=== PATIENT | female | born 1980 | race African-American/Black ===

== ENCOUNTER 2018-01-07 10:19 | Inpatient (IN) | payer OTHER ==
[2018-01-07] MEDS ORDERED: SODIUM CHLORIDE 0.9% 1,000 ML IV STA ×3 (10:52→12:39)
[2018-01-07] MEDS ORDERED: ONDANSETRON 4 MG/2 ML VIAL IVP STA (10:52)
--- NOTE | 2018-01-07 11:09 | ED ---
General Adult HPI - General Chief complaint: Syncope Stated complaint: Syncope Time Seen by Provider: 01/07/18 10:37 Source: patient, family, RN notes reviewed Mode of arrival: wheelchair Limitations: no limitations - History of Present Illness Initial comments: Patient 38-year-old female who presents emergency room today with chief complaint of near syncopal episodes. Patient does admit that she is had symptoms of nausea vomiting over the past week. She states she did see the family doctor and was results are on a blood pressure medication that she's been taking for the past 4 days. She does not that she's been on lisinopril. She does admit that she's had a difficult time with her appetite keeping anything down due to symptoms of nausea vomiting. Denies any signs of blood in the emesis. Denies any diarrhea. Denies any abdominal pain. Patient doesn't that she had an ear infection over a week ago that she did antibiotics for and pain has subsided. She denies any headaches or visual changes. She does admit that she's been feeling dizzy lightheaded at times. She denies any chest pain, back pain. Patient's son and daughter at bedside stating that they've noticed that she has been more lethargic and sleepy lately. Patient denies any fever or chills. - Related Data Home Medications Medication Instructions Recorded Confirmed Lisinopril [Zestril] 10 mg PO DAILY 01/07/18 01/07/18 Allergies Allergy/AdvReac Type Severity Reaction Status Date / Time hydromorphone [From Dilaudid] Allergy Swelling Verified 01/07/18 11:08 morphine Allergy Swelling Verified 01/07/18 11:08 Review of Systems ROS Statement: Those systems with pertinent positive or pertinent negative responses have been documented in the HPI. ROS Other: All systems not noted in ROS Statement are negative. Past Medical History Past Medical History: Hypertension History of Any Multi-Drug Resistant Organisms: None Reported Past Surgical History: Cholecystectomy, Tubal Ligation Past Psychological History: No Psychological Hx Reported Smoking Status: Former smoker Past Alcohol Use History: None Reported Past Drug Use History: None Reported General Exam - General Exam Comments Initial Comments: General: The patient is awake and alert, in no distress. Eye: Pupils are equal, round and reactive to light. Extra-ocular movements are intact. No nystagmus. There is normal conjunctiva bilaterally. No signs of icterus. Ears, nose, mouth and throat: There are moist mucous membranes and no oral lesions. TMs clear bilaterally. No tenderness over the mastoids. Neck: The neck is supple, there is no tenderness or JVD. Cardiovascular: There is a regular rate and rhythm. No murmur, rub or gallop is appreciated. Respiratory: Lungs are clear to auscultation, respirations are non-labored, breath sounds are equal. No wheezes, stridor, rales, or rhonchi. Gastrointestinal: Soft, non-distended, non-tender abdomen without masses or organomegaly noted. There is no rebound or guarding present. No CVA tenderness. Bowel sounds are unremarkable. Musculoskeletal: Normal ROM, no tenderness. Sensation intact. Strength 5/5. Pulses equal bilaterally 2+. Neurological: A&O x 3. CN II-XII intact, There are no obvious motor or sensory deficits. Coordination appears grossly intact. Speech is normal. Skin: Skin is warm and dry and no rashes or lesions are noted. Psychiatric: Cooperative, appropriate mood & affect, normal judgment. Limitations: no limitations Course Vital Signs 01/07/18 01/07/18 10:22 11:04 Temperature 97.7 F Pulse Rate 92 Pulse Rate [ 94 Sitting] Pulse Rate [ 140 H Standing] Pulse Rate [ 93 Supine] Respiratory 16 Rate Blood Pressure 119/82 Blood Pressure 118/68 [Sitting] Blood Pressure 129/76 [Supine] O2 Sat by Pulse 100 Oximetry EKG Findings - EKG Comments: EKG Findings:: EKG performed at 1040: Shows normal sinus rhythm at 87 bpm OH interval 148. QRS 88. QT/QTC 354/425. No acute ST changes. Medical Decision Making - Medical Decision Making Patient reexamined at this time states feeling some improvement here in the emergency room. Patient given total of 2 L IV fluids. Patient started on DKA protocol with blood glucose regular rhythm 500 and acetone positive. Patient orthostatic positive. Will be admitted to hospital and case discussed with admitting physician Dr. Marie. - Lab Data Result diagrams: 01/07/18 11:08 01/07/18 11:08 Lab Results 01/07/18 01/07/18 01/07/18 Range/Units 11:08 11:08 11:08 WBC 6.8 (3.8-10.6) k/uL RBC 5.97 H (3.80-5.40) m/uL Hgb 13.2 (11.4-16.0) gm/dL Hct 46.6 H (34.0-46.0) % MCV 78.1 L (80.0-100.0) fL MCH 22.2 L (25.0-35.0) pg MCHC 28.4 L (31.0-37.0) g/dL RDW 17.5 H (11.5-15.5) % Plt Count 294 (150-450) k/uL Neutrophils % 74 % Lymphocytes % 19 % Monocytes % 3 % Eosinophils % 2 % Basophils % 1 % Neutrophils # 5.1 (1.3-7.7) k/uL Lymphocytes # 1.3 (1.0-4.8) k/uL Monocytes # 0.2 (0-1.0) k/uL Eosinophils # 0.1 (0-0.7) k/uL Basophils # 0.0 (0-0.2) k/uL Hypochromasia Marked Anisocytosis Slight Microcytosis Slight Sodium 135 L (137-145) mmol/L Potassium 5.5 H (3.5-5.1) mmol/L Chloride 97 L (98-107) mmol/L Carbon Dioxide 12 L (22-30) mmol/L Anion Gap 26 mmol/L BUN 17 (7-17) mg/dL Creatinine 1.08 H (0.52-1.04) mg/dL Est GFR (CKD-EPI)AfAm 76 (>60 ml/min/1.73 sqM) Est GFR (CKD-EPI)NonAf 66 (>60 ml/min/1.73 sqM) Glucose 555 H* (74-99) mg/dL POC Glucose (mg/dL) (75-99) mg/dL POC Glu Acls Nurse ID Calcium 10.6 H (8.4-10.2) mg/dL Total Bilirubin 0.8 (0.2-1.3) mg/dL AST 16 (14-36) U/L ALT 17 (9-52) U/L Alkaline Phosphatase 134 H (38-126) U/L Total Creatine Kinase 46 (30-135) U/L CK-MB (CK-2) <0.2 (0.0-2.4) ng/mL CK-MB (CK-2) Rel Index Troponin I <0.012 (0.000-0.034) ng/mL Total Protein 8.3 H (6.3-8.2) g/dL Albumin 5.0 (3.5-5.0) g/dL Urine Color Urine Appearance (Clear) Urine pH (5.0-8.0) Ur Specific [place] (1.001-1.035) Urine Protein (Negative) Urine Glucose (UA) (Negative) Urine Ketones (Negative) Urine Blood (Negative) Urine Nitrite (Negative) Urine Bilirubin (Negative) Urine Urobilinogen (<2.0) mg/dL Ur Leukocyte Esterase (Negative) Urine RBC (0-5) /hpf Urine WBC (0-5) /hpf Ur Squamous Epith Cells (0-4) /hpf Urine Bacteria (None) /hpf Hyaline Casts (0-2) /lpf Urine Mucus (None) /hpf Urine Yeast (Budding) (None) /hpf Urine HCG, Qual (Not Detectd) Acetone, Qual (Negative) 01/07/18 01/07/18 01/07/18 Range/Units 11:08 11:25 11:25 WBC (3.8-10.6) k/uL RBC (3.80-5.40) m/uL Hgb (11.4-16.0) gm/dL Hct (34.0-46.0) % MCV (80.0-100.0) fL MCH (25.0-35.0) pg MCHC (31.0-37.0) g/dL RDW (11.5-15.5) % Plt Count (150-450) k/uL Neutrophils % % Lymphocytes % % Monocytes % % Eosinophils % % Basophils % % Neutrophils # (1.3-7.7) k/uL Lymphocytes # (1.0-4.8) k/uL Monocytes # (0-1.0) k/uL Eosinophils # (0-0.7) k/uL Basophils # (0-0.2) k/uL Hypochromasia Anisocytosis Microcytosis Sodium (137-145) mmol/L Potassium (3.5-5.1) mmol/L Chloride (98-107) mmol/L Carbon Dioxide (22-30) mmol/L Anion Gap mmol/L BUN (7-17) mg/dL Creatinine (0.52-1.04) mg/dL Est GFR (CKD-EPI)AfAm (>60 ml/min/1.73 sqM) Est GFR (CKD-EPI)NonAf (>60 ml/min/1.73 sqM) Glucose (74-99) mg/dL POC Glucose (mg/dL) (75-99) mg/dL POC Glu Acls Nurse ID Calcium (8.4-10.2) mg/dL Total Bilirubin (0.2-1.3) mg/dL AST (14-36) U/L ALT (9-52) U/L Alkaline Phosphatase (38-126) U/L Total Creatine Kinase (30-135) U/L CK-MB (CK-2) (0.0-2.4) ng/mL CK-MB (CK-2) Rel Index Troponin I (0.000-0.034) ng/mL Total Protein (6.3-8.2) g/dL Albumin (3.5-5.0) g/dL Urine Color Light Yellow Urine Appearance Clear (Clear) Urine pH 5.0 (5.0-8.0) Ur Specific [place] 1.028 (1.001-1.035) Urine Protein Trace H (Negative) Urine Glucose (UA) 4+ H (Negative) Urine Ketones 4+ H (Negative) Urine Blood Negative (Negative) Urine Nitrite Negative (Negative) Urine Bilirubin Negative (Negative) Urine Urobilinogen <2.0 (<2.0) mg/dL Ur Leukocyte Esterase Small H (Negative) Urine RBC 7 H (0-5) /hpf Urine WBC 3 (0-5) /hpf Ur Squamous Epith Cells 2 (0-4) /hpf Urine Bacteria Rare H (None) /hpf Hyaline Casts 1 (0-2) /lpf Urine Mucus Rare H (None) /hpf Urine Yeast (Budding) Rare H (None) /hpf Urine HCG, Qual Not Detected (Not Detectd) Acetone, Qual Positive (Negative) 01/07/18 Range/Units 11:46 WBC (3.8-10.6) k/uL RBC (3.80-5.40) m/uL Hgb (11.4-16.0) gm/dL Hct (34.0-46.0) % MCV (80.0-100.0) fL MCH (25.0-35.0) pg MCHC (31.0-37.0) g/dL RDW (11.5-15.5) % Plt Count (150-450) k/uL Neutrophils % % Lymphocytes % % Monocytes % % Eosinophils % % Basophils % % Neutrophils # (1.3-7.7) k/uL Lymphocytes # (1.0-4.8) k/uL Monocytes # (0-1.0) k/uL Eosinophils # (0-0.7) k/uL Basophils # (0-0.2) k/uL Hypochromasia Anisocytosis Microcytosis Sodium (137-145) mmol/L Potassium (3.5-5.1) mmol/L Chloride (98-107) mmol/L Carbon Dioxide (22-30) mmol/L Anion Gap mmol/L BUN (7-17) mg/dL Creatinine (0.52-1.04) mg/dL Est GFR (CKD-EPI)AfAm (>60 ml/min/1.73 sqM) Est GFR (CKD-EPI)NonAf (>60 ml/min/1.73 sqM) Glucose (74-99) mg/dL POC Glucose (mg/dL) 477 H (75-99) mg/dL POC Glu Acls Nurse ID Dylon Schaeffer Calcium (8.4-10.2) mg/dL Total Bilirubin (0.2-1.3) mg/dL AST (14-36) U/L ALT (9-52) U/L Alkaline Phosphatase (38-126) U/L Total Creatine Kinase (30-135) U/L CK-MB (CK-2) (0.0-2.4) ng/mL CK-MB (CK-2) Rel Index Troponin I (0.000-0.034) ng/mL Total Protein (6.3-8.2) g/dL Albumin (3.5-5.0) g/dL Urine Color Urine Appearance (Clear) Urine pH (5.0-8.0) Ur Specific [place] (1.001-1.035) Urine Protein (Negative) Urine Glucose (UA) (Negative) Urine Ketones (Negative) Urine Blood (Negative) Urine Nitrite (Negative) Urine Bilirubin (Negative) Urine Urobilinogen (<2.0) mg/dL Ur Leukocyte Esterase (Negative) Urine RBC (0-5) /hpf Urine WBC (0-5) /hpf Ur Squamous Epith Cells (0-4) /hpf Urine Bacteria (None) /hpf Hyaline Casts (0-2) /lpf Urine Mucus (None) /hpf Urine Yeast (Budding) (None) /hpf Urine HCG, Qual (Not Detectd) Acetone, Qual (Negative) Disposition Clinical Impression: DKA (diabetic ketoacidoses), Orthostatic hypotension, Nausea & vomiting, Near syncope Disposition: ADMITTED IP TO THIS HOSP Condition: Stable Is patient prescribed a controlled substance at d/c from ED?: No Referrals: Carmen Warner MD [Primary Care Provider] - 1-2 days Time of Disposition: 12:33
[2018-01-07 11:22] LABS: Anisocytosis Slight; Basophils % (A) 1 %; Eosinophils # (A) 0.1 k/uL (0-0.7); Eosinophils % (A) 2 %; HCT 46.6 % (34.0-46.0); HGB 13.2 gm/dL (11.4-16.0); Hypochromasia Marked; Lymphocytes # (A) 1.3 k/uL (1.0-4.8); Lymphocytes % (A) 19 %; MCH 22.2 pg (25.0-35.0); MCHC 28.4 g/dL (31.0-37.0); MCV 78.1 fL (80.0-100.0); Microcytosis Slight; Monocytes # (A) 0.2 k/uL (0-1.0); Monocytes % (A) 3 %; Neutrophils # (A) 5.1 k/uL (1.3-7.7); Neutrophils % (A) 74 %; Platelet Count 294 k/uL (150-450); RBC 5.97 m/uL (3.80-5.40); RDW 17.5 % (11.5-15.5); WBC 6.8 k/uL (3.8-10.6)
[2018-01-07 11:33] LABS: Calcium 10.6 mg/dL (8.4-10.2); Potassium 5.5 mmol/L (3.5-5.1); Total Bilirubin 0.8 mg/dL (0.2-1.3); Total Protein 8.3 g/dL (6.3-8.2)
[2018-01-07 11:35] LABS: Appearance,Urine Clear (Clear); Bacteria,Urine Rare /hpf; Bilirubin,Urine Negative (Negative); Blood,Urine Negative (Negative); Budding Yeast,Urine Rare /hpf; Color,Urine Light Yellow; Glucose,Urine (UA) 4+ (Negative); Hyaline Casts,Urine 1 /lpf (0-2); Leukocyte Esterase,Urine Small (Negative); Mucus,Urine Rare /hpf; Nitrite,Urine Negative (Negative); Protein,Urine Trace (Negative); RBC,Urine 7 /hpf (0-5); Specific Gravity,Urine 1.028 (1.001-1.035); Squamous Epithelial Cell,Urine 2 /hpf (0-4); Urobilinogen,Urine <2.0 mg/dL (<2.0)
[2018-01-07 11:40] LABS: Ketones,Urine 4+ (Negative)
[2018-01-07 11:41] LABS: Creatine Kinase 46 U/L (30-135)
[2018-01-07] MEDS ORDERED: INSULIN ASPART 100 UNIT/ML 1 ML 10 ML VIAL SQ ONE (11:48)
[2018-01-07 11:51] LABS: Glucose,Whole Blood 477 mg/dL (75-99)
[2018-01-07 11:55] LABS: Creatine Kinase MB <0.2 ng/mL (0.0-2.4); Troponin I <0.012 ng/mL (0.000-0.034)
[2018-01-07] MEDS ORDERED: Magnesium Replacement Protocol 1 EACH MISC MISCELLANE PRN (12:29)
[2018-01-07] MEDS ORDERED: Potassium Replacement Protocol 1 EACH MISC MISCELLANE PRN (12:29)
[2018-01-07] MEDS ORDERED: SODIUM CHLORIDE 0.9% 1,000 ML IV SCH (12:30)
[2018-01-07] MEDS ORDERED: INSULIN REGULAR 100 UNIT in SODIUM CHLORIDE 0.9% 100 ML IV SCH (12:30)
[2018-01-07] MEDS ORDERED: ONDANSETRON 4 MG/2 ML VIAL IVP PRN (13:01)
[2018-01-07] MEDS: SODIUM CHLORIDE 0.9% 1,000 ML IV SCH ×2 (13:04→18:16)
[2018-01-07] MEDS: INSULIN REGULAR 100 UNIT in SODIUM CHLORIDE 0.9% 100 ML IV SCH (13:04)
--- NOTE | 2018-01-07 13:09 | P.HPIM ---
History of Present Illness H&P Date: 01/07/18 Chief Complaint: Nausea and vomiting, fatigue and weakness The Patient is 38-year-old -[place] female who presents emergency room today with chief complaint of episodes of lightheadedness, generalized weakness and fatigue over the last week. Patient does admit that she is had symptoms of nausea vomiting over the past week, but denies any abdominal pain, diarrhea or constipation. She states she did see the family doctor Dr. Warner and was started on a blood pressure medication that she's been taking for the past 4 days. She does admit that she's had a difficult time with her appetite keeping anything down due to symptoms of nausea vomiting. Denies any signs of blood in the emesis. Patient doesn't that she had an ear infection over a week ago that she did antibiotics for and pain has subsided. She denies any headaches or visual changes. She does admit that she's been feeling dizzy lightheaded at times. She denies any chest pain, back pain. Patient's son and daughter at bedside stating that they've noticed that she has been more lethargic and sleepy lately. Patient denies any fever or chills. She denies any dysuria, flank pain or frequency. She does report nocturia In the ER circumference a workup, with pretty remarkable labs serum bicarb 12, serum sodium 135 , serum potassium 5.5 blood sugar 555, creatinine 1.08, urinalysis with +4ketones and glucose. Patient was initially noted to be tachycardic. She was given a bolus of IV fluids, regular insulin and started on DKA protocol and recommended for admission for DKA Review of Systems Pertinent positives per HPI, all other review of systems are otherwise negative Past Medical History Past Medical History: Hypertension History of Any Multi-Drug Resistant Organisms: None Reported Past Surgical History: Cholecystectomy, Tubal Ligation Past Psychological History: No Psychological Hx Reported Smoking Status: Former smoker Past Alcohol Use History: None Reported Past Drug Use History: None Reported Medications and Allergies Home Medications Medication Instructions Recorded Confirmed Type Lisinopril [Zestril] 10 mg PO DAILY 01/07/18 01/07/18 History Allergies Allergy/AdvReac Type Severity Reaction Status Date / Time hydromorphone [From Dilaudid] Allergy Swelling Verified 01/07/18 11:08 morphine Allergy Swelling Verified 01/07/18 11:08 Physical Exam Vitals: Vital Signs Temp Pulse Pulse Pulse Pulse Resp BP 01/07/18 11:04 94 140 H 93 01/07/18 10:22 97.7 F 92 16 119/82 BP BP Pulse Ox 01/07/18 11:04 118/68 129/76 01/07/18 10:22 100 Intake and Output 01/06/18 01/07/18 01/07/18 22:59 06:59 14:59 Other: Weight 108.862 kg Constitutional: No acute distress, conversant, pleasant Eyes: Anicteric sclerae, moist conjunctiva, no lid-lag, PERRLA ENMT: NC/AT,Oropharynx clear, no erythema, exudates Neck:Supple, FROM, no masses, or JVD, No carotid bruits; No thyromegaly Lungs: Clear to auscultation, Clear to percussion, Normal respiratory effort, no accessory muscle use Cardiovascular: Heart regular in rate and rhythm, No murmurs, gallops, or rubs no peripheral edema Abdominal: Soft Nontender, nom distended, no guarding, no rebound or rigidity, Normoactive bowel sounds No hepatomegaly, No splenomegaly, No palpable mass No abdominal wall hernia noted Skin: Normal temperature, tone, texture, turgor, No induration No subcutaneous nodules, No rash, lesions, No ulcers Extremities:No digital cyanosis No clubbing, Pedal pulses intact and symmetrical Radial pulses intact and symmetrical Normal gait and station, No calf tenderness Psychiatric: Alert and oriented to person, place and time, Appropriate affect Intact judgement Neuro: Muscles Strength 5/5 in all 4 extremities, Sensation to light touch grossly present throughout, Cranial nerves II-XII grossly intact. No focal sensory deficits Results CBC & Chem 7: 01/07/18 11:08 01/07/18 11:08 Labs: Abnormal Lab Results - Last 24 Hours (Table) 01/07/18 01/07/18 01/07/18 Range/Units 11:08 11:08 11:25 RBC 5.97 H (3.80-5.40) m/uL Hct 46.6 H (34.0-46.0) % MCV 78.1 L (80.0-100.0) fL MCH 22.2 L (25.0-35.0) pg MCHC 28.4 L (31.0-37.0) g/dL RDW 17.5 H (11.5-15.5) % Sodium 135 L (137-145) mmol/L Potassium 5.5 H (3.5-5.1) mmol/L Chloride 97 L (98-107) mmol/L Carbon Dioxide 12 L (22-30) mmol/L Creatinine 1.08 H (0.52-1.04) mg/dL Glucose 555 H* (74-99) mg/dL POC Glucose (mg/dL) (75-99) mg/dL Calcium 10.6 H (8.4-10.2) mg/dL Alkaline Phosphatase 134 H (38-126) U/L Total Protein 8.3 H (6.3-8.2) g/dL Urine Protein Trace H (Negative) Urine Glucose (UA) 4+ H (Negative) Urine Ketones 4+ H (Negative) Ur Leukocyte Esterase Small H (Negative) Urine RBC 7 H (0-5) /hpf Urine Bacteria Rare H (None) /hpf Urine Mucus Rare H (None) /hpf Urine Yeast (Budding) Rare H (None) /hpf 01/07/18 Range/Units 11:46 RBC (3.80-5.40) m/uL Hct (34.0-46.0) % MCV (80.0-100.0) fL MCH (25.0-35.0) pg MCHC (31.0-37.0) g/dL RDW (11.5-15.5) % Sodium (137-145) mmol/L Potassium (3.5-5.1) mmol/L Chloride (98-107) mmol/L Carbon Dioxide (22-30) mmol/L Creatinine (0.52-1.04) mg/dL Glucose (74-99) mg/dL POC Glucose (mg/dL) 477 H (75-99) mg/dL Calcium (8.4-10.2) mg/dL Alkaline Phosphatase (38-126) U/L Total Protein (6.3-8.2) g/dL Urine Protein (Negative) Urine Glucose (UA) (Negative) Urine Ketones (Negative) Ur Leukocyte Esterase (Negative) Urine RBC (0-5) /hpf Urine Bacteria (None) /hpf Urine Mucus (None) /hpf Urine Yeast (Budding) (None) /hpf Assessment and Plan (1) DKA (diabetic ketoacidoses) Current Visit: Yes Status: Acute Code(s): E13.10 - OTH DIABETES MELLITUS WITH KETOACIDOSIS WITHOUT COMA SNOMED Code(s): 259583867 (2) ESE (acute kidney injury) Current Visit: Yes Status: Acute Code(s): N17.9 - ACUTE KIDNEY FAILURE, UNSPECIFIED SNOMED Code(s): 51264989 (3) Metabolic acidosis Current Visit: Yes Status: Acute Code(s): E87.2 - ACIDOSIS SNOMED Code(s) : 10972599 (4) Nausea & vomiting Current Visit: Yes Status: Acute Code(s): R11.2 - NAUSEA WITH VOMITING, UNSPECIFIED SNOMED Code(s): 32483019 (5) Near syncope Current Visit: Yes Status: Acute Code(s): R55 - SYNCOPE AND COLLAPSE SNOMED Code(s): 244201540 (6) Hyperkalemia Current Visit: Yes Status: Acute Code(s): E87.5 - HYPERKALEMIA SNOMED Code (s): 81430799 Plan: The patient is admitted anticipated greater than 2 midnight stay with DKA, patient likely has type 2 diabetes of new onset. She started on in house DKA protocol placed on insulin drip and IV fluids. We'll check A1c, ABG, sequential electrolytes to monitor anion gap so that we can transition her to subcutaneous insulin. We'll order a ems educator dietitian consult. The patient has mild acute kidney injury with hyperkalemia likely prerenal due to DKA and dehydration. Continue to treat supportively with IV antiemetics. Patient will likely need to be started on metformin and continued on lisinopril , at this time will Continue to monitor clinical course
[2018-01-07] MEDS ORDERED: ENOXAPARIN 40 MG/0.4 ML SYRINGE SQ STA (13:16)
[2018-01-07 13:35] LABS: Glucose,Whole Blood 404 mg/dL (75-99)
[2018-01-07 13:48] LABS: Glucose,Whole Blood 354 mg/dL (75-99)
[2018-01-07 14:53] LABS: Glucose,Whole Blood 229 mg/dL (75-99)
[2018-01-07 15:14] LABS: Amorphous Sediment,Urine Rare /hpf; Appearance,Urine Cloudy (Clear); Bilirubin,Urine Negative (Negative); Blood,Urine Large (Negative); Color,Urine Light Yellow; Glucose,Urine (UA) 4+ (Negative); Leukocyte Esterase,Urine Large (Negative); Mucus,Urine Rare /hpf; Nitrite,Urine Negative (Negative); Protein,Urine Trace (Negative); RBC,Urine >182 /hpf (0-5); Specific Gravity,Urine 1.023 (1.001-1.035); Squamous Epithelial Cell,Urine 29 /hpf (0-4); Urobilinogen,Urine <2.0 mg/dL (<2.0); WBC,Urine 84 /hpf (0-5)
[2018-01-07 15:16] LABS: Ketones,Urine 4+ (Negative)
[2018-01-07] MEDS: D5-0.45% NACL WITH KCL 20MEQ/L 1,000 ML IV SCH (15:56)
[2018-01-07 16:23] LABS: Glucose,Whole Blood 147 mg/dL (75-99)
[2018-01-07 17:06] LABS: Anion Gap 16 mmol/L; Blood Urea Nitrogen 13 mg/dL (7-17); Carbon Dioxide 16 mmol/L (22-30); Chloride 108 mmol/L (98-107); Glucose 151 mg/dL (74-99); Potassium 4.5 mmol/L (3.5-5.1); Sodium 140 mmol/L (137-145)
[2018-01-07 17:24] LABS: Glucose,Whole Blood 150 mg/dL (75-99)
[2018-01-07 18:43] LABS: Glucose,Whole Blood 149 mg/dL (75-99)
[2018-01-07 19:31] LABS: Glucose,Whole Blood 175 mg/dL (75-99)
[2018-01-07 20:12] LABS: Glucose,Whole Blood 152 mg/dL (75-99)
[2018-01-07 21:04] LABS: Anion Gap 14 mmol/L; Blood Urea Nitrogen 11 mg/dL (7-17); Carbon Dioxide 15 mmol/L (22-30); Chloride 107 mmol/L (98-107); Glucose 152 mg/dL (74-99); Phosphorus 2.8 mg/dL (2.5-4.5); Potassium 4.3 mmol/L (3.5-5.1); Sodium 136 mmol/L (137-145)
[2018-01-07 21:20] LABS: Glucose,Whole Blood 141 mg/dL (75-99)
[2018-01-07 22:20] LABS: Glucose,Whole Blood 147 mg/dL (75-99)
[2018-01-07 23:27] LABS: Glucose,Whole Blood 239 mg/dL (75-99)
[2018-01-08 00:51] LABS: Glucose,Whole Blood 208 mg/dL (75-99)
[2018-01-08 01:36] LABS: Glucose,Whole Blood 221 mg/dL (75-99)
[2018-01-08 01:58] LABS: Anion Gap 12 mmol/L; Blood Urea Nitrogen 9 mg/dL (7-17); Calcium 8.6 mg/dL (8.4-10.2); Carbon Dioxide 16 mmol/L (22-30); Chloride 106 mmol/L (98-107); Glucose 233 mg/dL (74-99); Sodium 134 mmol/L (137-145)
[2018-01-08 02:49] LABS: Glucose,Whole Blood 259 mg/dL (75-99)
[2018-01-08 03:50] LABS: Glucose,Whole Blood 285 mg/dL (75-99)
[2018-01-08 05:12] LABS: Glucose,Whole Blood 271 mg/dL (75-99)
[2018-01-08] MEDS: D5-0.45% NACL WITH KCL 20MEQ/L 1,000 ML IV SCH ×3 (05:35→11:54)
[2018-01-08] MEDS: INSULIN REGULAR 100 UNIT in SODIUM CHLORIDE 0.9% 100 ML IV SCH ×2 (05:38→14:41)
[2018-01-08 05:50] LABS: Glucose,Whole Blood 275 mg/dL (75-99)
[2018-01-08 07:47] LABS: Glucose,Whole Blood 257 mg/dL (75-99)
[2018-01-08 10:03] LABS: Anion Gap 10 mmol/L; Blood Urea Nitrogen 7 mg/dL (7-17); Calcium 8.4 mg/dL (8.4-10.2); Carbon Dioxide 20 mmol/L (22-30); Chloride 105 mmol/L (98-107); Glucose 274 mg/dL (74-99); Potassium 4.1 mmol/L (3.5-5.1); Sodium 135 mmol/L (137-145)
[2018-01-08 11:33] VITALS: BMI 39.4
[2018-01-08 11:56] LABS: Glucose,Whole Blood 211 mg/dL (75-99)
--- NOTE | 2018-01-08 12:46 | P.PN ---
Subjective Progress Note Date: 01/08/18 Patient has been noncompliant since early this morning with blood sugar draws and labs, demanding to be fed. Discussed with the patient the ongoing plan of care for her DKA and type 2 diabetes. Discussed that this is typical to keep patient's nothing by mouth while they are in DKA, explained that is imperative to continue to allow us to do blood sugar draws and labs so that we can transition her to subcu insulin and feed her. Patient voiced understanding. No acute events overnight Objective - Vital Signs Vital signs: Vital Signs Temp 97.5 F L 01/08/18 04:00 Pulse 76 01/08/18 11:56 Resp 16 01/08/18 12:00 BP 113/56 01/08/18 11:56 Pulse Ox 97 01/08/18 11:56 Intake & Output 01/07/18 01/08/18 01/08/18 18:59 06:59 18:59 Intake Total 36.668 46.439 17.893 Output Total 600 Balance -563.332 46.439 17.893 Weight 108.862 kg 110.8 kg 110.8 kg Intake: Intake, IV Titration 36.668 46.439 17.893 Amount Insulin Regular 100 unit 36.668 46.439 17.893 In Sodium Chloride 0.9% 100 ml @ 0.1 UNITS/KG/HR 10.99 mls/hr IV .[id number] [facility] Rx#:[id number] Output: Urine 600 Other: Voiding Method Toilet Toilet # Voids 1 1 - Exam Constitutional: No acute distress, conversant, pleasant Eyes: Anicteric sclerae, moist conjunctiva, no lid-lag, PERRLA ENMT: NC/AT,Oropharynx clear, no erythema, exudates Neck:Supple, FROM, no masses, or JVD, No carotid bruits; No thyromegaly Lungs: Clear to auscultation, Clear to percussion, Normal respiratory effort, no accessory muscle use Cardiovascular: Heart regular in rate and rhythm, No murmurs, gallops, or rubs no peripheral edema Abdominal: Soft Nontender, nom distended, no guarding, no rebound or rigidity, Normoactive bowel sounds No hepatomegaly, No splenomegaly, No palpable mass No abdominal wall hernia noted Skin: Normal temperature, tone, texture, turgor, No induration No subcutaneous nodules, No rash, lesions, No ulcers Extremities:No digital cyanosis No clubbing, Pedal pulses intact and symmetrical Radial pulses intact and symmetrical Normal gait and station, No calf tenderness Psychiatric: Alert and oriented to person, place and time, Appropriate affect Intact judgement Neuro: Muscles Strength 5/5 in all 4 extremities, Sensation to light touch grossly present throughout, Cranial nerves II-XII grossly intact. No focal sensory deficits - Labs CBC & Chem 7: 01/07/18 11:08 01/08/18 06:29 Labs: Abnormal Lab Results - Last 24 Hours (Table) 01/07/18 01/07/18 01/07/18 Range/Units 11:08 12:58 13:39 Sodium (137-145) mmol/L Chloride (98-107) mmol/L Carbon Dioxide (22-30) mmol/L Glucose (74-99) mg/dL POC Glucose (mg/dL) 404 H 354 H (75-99) mg/dL Hemoglobin A1c 14.0 H (4.0-6.0) % Urine Appearance (Clear) Urine Protein (Negative) Urine Glucose (UA) (Negative) Urine Ketones (Negative) Urine Blood (Negative) Ur Leukocyte Esterase (Negative) Urine RBC (0-5) /hpf Urine WBC (0-5) /hpf Ur Squamous Epith Cells (0-4) /hpf Amorphous Sediment (None) /hpf Urine Mucus (None) /hpf 01/07/18 01/07/18 01/07/18 Range/Units 14:46 14:55 16:09 Sodium (137-145) mmol/L Chloride (98-107) mmol/L Carbon Dioxide (22-30) mmol/L Glucose (74-99) mg/dL POC Glucose (mg/dL) 229 H 147 H (75-99) mg/dL Hemoglobin A1c (4.0-6.0) % Urine Appearance Cloudy H (Clear) Urine Protein Trace H (Negative) Urine Glucose (UA) 4+ H (Negative) Urine Ketones 4+ H (Negative) Urine Blood Large H (Negative) Ur Leukocyte Esterase Large H (Negative) Urine RBC >182 H (0-5) /hpf Urine WBC 84 H (0-5) /hpf Ur Squamous Epith Cells 29 H (0-4) /hpf Amorphous Sediment Rare H (None) /hpf Urine Mucus Rare H (None) /hpf 01/07/18 01/07/18 01/07/18 Range/Units 16:23 17:20 18:31 Sodium (137-145) mmol/L Chloride 108 H (98-107) mmol/L Carbon Dioxide 16 L (22-30) mmol/L Glucose 151 H (74-99) mg/dL POC Glucose (mg/dL) 150 H 149 H (75-99) mg/dL Hemoglobin A1c (4.0-6.0) % Urine Appearance (Clear) Urine Protein (Negative) Urine Glucose (UA) (Negative) Urine Ketones (Negative) Urine Blood (Negative) Ur Leukocyte Esterase (Negative) Urine RBC (0-5) /hpf Urine WBC (0-5) /hpf Ur Squamous Epith Cells (0-4) /hpf Amorphous Sediment (None) /hpf Urine Mucus (None) /hpf 01/07/18 01/07/18 01/07/18 Range/Units 19:26 20:07 20:10 Sodium 136 L (137-145) mmol/L Chloride (98-107) mmol/L Carbon Dioxide 15 L (22-30) mmol/L Glucose 152 H (74-99) mg/dL POC Glucose (mg/dL) 175 H 152 H (75-99) mg/dL Hemoglobin A1c (4.0-6.0) % Urine Appearance (Clear) Urine Protein (Negative) Urine Glucose (UA) (Negative) Urine Ketones (Negative) Urine Blood (Negative) Ur Leukocyte Esterase (Negative) Urine RBC (0-5) /hpf Urine WBC (0-5) /hpf Ur Squamous Epith Cells (0-4) /hpf Amorphous Sediment (None) /hpf Urine Mucus (None) /hpf 01/07/18 01/07/18 01/07/18 Range/Units 21:16 22:18 23:25 Sodium (137-145) mmol/L Chloride (98-107) mmol/L Carbon Dioxide (22-30) mmol/L Glucose (74-99) mg/dL POC Glucose (mg/dL) 141 H 147 H 239 H (75-99) mg/dL Hemoglobin A1c (4.0-6.0) % Urine Appearance (Clear) Urine Protein (Negative) Urine Glucose (UA) (Negative) Urine Ketones (Negative) Urine Blood (Negative) Ur Leukocyte Esterase (Negative) Urine RBC (0-5) /hpf Urine WBC (0-5) /hpf Ur Squamous Epith Cells (0-4) /hpf Amorphous Sediment (None) /hpf Urine Mucus (None) /hpf 01/08/18 01/08/18 01/08/18 Range/Units 00:50 01:34 01:34 Sodium 134 L (137-145) mmol/L Chloride (98-107) mmol/L Carbon Dioxide 16 L (22-30) mmol/L Glucose 233 H (74-99) mg/dL POC Glucose (mg/dL) 208 H 221 H (75-99) mg/dL Hemoglobin A1c (4.0-6.0) % Urine Appearance (Clear) Urine Protein (Negative) Urine Glucose (UA) (Negative) Urine Ketones (Negative) Urine Blood (Negative) Ur Leukocyte Esterase (Negative) Urine RBC (0-5) /hpf Urine WBC (0-5) /hpf Ur Squamous Epith Cells (0-4) /hpf Amorphous Sediment (None) /hpf Urine Mucus (None) /hpf 01/08/18 01/08/18 01/08/18 Range/Units 02:46 03:48 04:47 Sodium (137-145) mmol/L Chloride (98-107) mmol/L Carbon Dioxide (22-30) mmol/L Glucose (74-99) mg/dL POC Glucose (mg/dL) 259 H 285 H 271 H (75-99) mg/dL Hemoglobin A1c (4.0-6.0) % Urine Appearance (Clear) Urine Protein (Negative) Urine Glucose (UA) (Negative) Urine Ketones (Negative) Urine Blood (Negative) Ur Leukocyte Esterase (Negative) Urine RBC (0-5) /hpf Urine WBC (0-5) /hpf Ur Squamous Epith Cells (0-4) /hpf Amorphous Sediment (None) /hpf Urine Mucus (None) /hpf 01/08/18 01/08/18 01/08/18 Range/Units 05:47 06:29 07:26 Sodium 135 L (137-145) mmol/L Chloride (98-107) mmol/L Carbon Dioxide 20 L (22-30) mmol/L Glucose 274 H (74-99) mg/dL POC Glucose (mg/dL) 275 H 257 H (75-99) mg/dL Hemoglobin A1c (4.0-6.0) % Urine Appearance (Clear) Urine Protein (Negative) Urine Glucose (UA) (Negative) Urine Ketones (Negative) Urine Blood (Negative) Ur Leukocyte Esterase (Negative) Urine RBC (0-5) /hpf Urine WBC (0-5) /hpf Ur Squamous Epith Cells (0-4) /hpf Amorphous Sediment (None) /hpf Urine Mucus (None) /hpf 01/08/18 Range/Units 11:36 Sodium (137-145) mmol/L Chloride (98-107) mmol/L Carbon Dioxide (22-30) mmol/L Glucose (74-99) mg/dL POC Glucose (mg/dL) 211 H (75-99) mg/dL Hemoglobin A1c (4.0-6.0) % Urine Appearance (Clear) Urine Protein (Negative) Urine Glucose (UA) (Negative) Urine Ketones (Negative) Urine Blood (Negative) Ur Leukocyte Esterase (Negative) Urine RBC (0-5) /hpf Urine WBC (0-5) /hpf Ur Squamous Epith Cells (0-4) /hpf Amorphous Sediment (None) /hpf Urine Mucus (None) /hpf Assessment and Plan (1) DKA (diabetic ketoacidoses) Narrative/Plan: * Patient initially refusing lab draws 4 hourly blood sugars and a.m. labs, discussed plan of care, patient agreeable * Continue to keep the patient nothing by mouth, this a.m. acetone is still positive, with anion gap closing * Continue with insulin drip, will recheck labs later today, we'll likely transition her to subcu insulin by dinnertime * A1c is 14, patient seen by manager credit and dietitian. Discussed with the patient that she will be sent home on insulin and perhaps metformin * Continue to monitor status Current Visit: Yes Status: Acute Code(s): E13.10 - OTH DIABETES MELLITUS WITH KETOACIDOSIS WITHOUT COMA SNOMED Code(s): 696842847 (2) ESE (acute kidney injury) Narrative/Plan: Resolved with IV fluids Current Visit: Yes Status: Resolved Code(s): N17.9 - ACUTE KIDNEY FAILURE, UNSPECIFIED SNOMED Code(s): 60293050 (3) Metabolic acidosis Current Visit: Yes Status: Acute Code(s): E87.2 - ACIDOSIS SNOMED Code(s) : 56617073 (4) Nausea & vomiting Narrative/Plan: * Secondary to DKA continue supportive therapy with Zofran Current Visit: Yes Status: Acute Code(s): R11.2 - NAUSEA WITH VOMITING, UNSPECIFIED SNOMED Code(s): 11364038 (5) Near syncope Narrative/Plan: * Secondary to dehydration due to DKA * Resolved with IV fluids Current Visit: Yes Status: Resolved Code(s): R55 - SYNCOPE AND COLLAPSE SNOMED Code(s): 748625241 (6) Hyperkalemia Narrative/Plan: * Secondary to DKA Current Visit: Yes Status: Resolved Code(s): E87.5 - HYPERKALEMIA SNOMED Code(s): 41064402 Plan: Anticipated discharge 1 day Continue with insulin drip plan to transition to subcu insulin when her DKA is resolved
[2018-01-08 13:03] LABS: Glucose,Whole Blood 194 mg/dL (75-99)
[2018-01-08 14:28] LABS: Glucose,Whole Blood 206 mg/dL (75-99)
[2018-01-08 14:55] LABS: Glucose,Whole Blood 225 mg/dL (75-99)
[2018-01-08 15:40] LABS: Anion Gap 9 mmol/L; Blood Urea Nitrogen 5 mg/dL (7-17); Calcium 8.7 mg/dL (8.4-10.2); Carbon Dioxide 21 mmol/L (22-30); Chloride 107 mmol/L (98-107); Glucose 223 mg/dL (74-99); Potassium 4.3 mmol/L (3.5-5.1); Sodium 137 mmol/L (137-145)
[2018-01-08 15:43] LABS: Glucose,Whole Blood 207 mg/dL (75-99)
[2018-01-08 16:41] LABS: Glucose,Whole Blood 199 mg/dL (75-99)
[2018-01-08 17:56] LABS: Glucose,Whole Blood 213 mg/dL (75-99)
[2018-01-08 19:23] LABS: Glucose,Whole Blood 184 mg/dL (75-99)
[2018-01-08] MEDS: INSULIN ASPART 100 UNIT/ML 1 ML 10 ML VIAL SQ SCH ×3 (20:56→22:00)
[2018-01-08 21:00] LABS: Glucose,Whole Blood 146 mg/dL (75-99)
[2018-01-08] MEDS ORDERED: INSULIN DETEMIR 100 UNIT/ML 10 ML VIAL SQ SCH (21:00)
[2018-01-09 06:16] LABS: Glucose,Whole Blood 213 mg/dL (75-99)
[2018-01-09] MEDS: INSULIN ASPART 100 UNIT/ML 1 ML 10 ML VIAL SQ SCH ×4 (06:59→11:34)
[2018-01-09 08:02] VITALS: RESP 16; TEMP 98
[2018-01-09] MEDS ORDERED: metFORMIN 500 MG TAB PO SCH (08:30)
[2018-01-09] MEDS ORDERED: LISINOPRIL 10 MG TAB PO SCH (09:00)
[2018-01-09 11:39] LABS: Glucose,Whole Blood 294 mg/dL (75-99)
--- NOTE | 2018-01-09 12:19 | P.DS ---
Providers Date of admission: 01/07/18 12:30 Expected date of discharge: 01/09/18 Attending physician: Ken Marie MD Primary care physician: Carmen Warner MD - Discharge Diagnosis(es) (1) DKA (diabetic ketoacidoses) Current Visit: Yes Status: Acute (2) ESE (acute kidney injury) Current Visit: Yes Status: Resolved (3) Metabolic acidosis Current Visit: Yes Status: Acute (4) Nausea & vomiting Current Visit: Yes Status: Acute (5) Near syncope Current Visit: Yes Status: Resolved (6) Hyperkalemia Current Visit: Yes Status: Resolved (7) Type 2 diabetes mellitus with hyperglycemia Current Visit: Yes Status: Acute Hospital Course: The patient is a morbidly obese 38-year-old -[place] female that was admitted with DKA and new onset type 2 diabetes after presenting with chief complaint of intractable nausea vomiting with significantly elevated blood sugars 555, metabolic acidosis and ketonuria. She is given aggressive IV fluid replacement and started on insulin drip per in-house protocol. She was also noted to be severely dehydrated with a mild acute kidney injury which resolved with IV fluids. Her type 2 diabetes with severely uncontrolled A1c was 14. She was gradually transitioned to subcu insulin after resolution of her anion gap and her DKA. She was transitioned to Levemir 44 units daily at bedtime and NovoLog 14 units subcu every before meals. She was seen by the certified lactation educator and dietitian and was taught how to administer her own insulin. She was subsequently discharged home in stable condition with new prescriptions for insulin regimen and metformin. manager bench was able to set up a glucometer and home diabetic supplies testing for 4 times a day testing. This discharge process took approximately 35 minutes Discharge prescriptions Metformin 1000 mg by mouth twice a day Reglan 5 mg PO qachs Basal Glar kwikpen 44 U sq qhs Humalog Kwikpen 14 U sq qac Discharge physical Constitutional: No acute distress, conversant, pleasant Eyes: Anicteric sclerae, moist conjunctiva, no lid-lag, PERRLA ENMT: NC/AT,Oropharynx clear, no erythema, exudates Neck:Supple, FROM, no masses, or JVD, No carotid bruits; No thyromegaly Lungs: Clear to auscultation, Clear to percussion, Normal respiratory effort, no accessory muscle use Cardiovascular: Heart regular in rate and rhythm, No murmurs, gallops, or rubs no peripheral edema Abdominal: Soft Nontender, nom distended, no guarding, no rebound or rigidity, Normoactive bowel sounds No hepatomegaly, No splenomegaly, No palpable mass No abdominal wall hernia noted Skin: Normal temperature, tone, texture, turgor, No induration No subcutaneous nodules, No rash, lesions, No ulcers Extremities:No digital cyanosis No clubbing, Pedal pulses intact and symmetrical Radial pulses intact and symmetrical Normal gait and station, No calf tenderness Psychiatric: Alert and oriented to person, place and time, Appropriate affect Intact judgement Neuro: Muscles Strength 5/5 in all 4 extremities, Sensation to light touch grossly present throughout, Cranial nerves II-XII grossly intact. No focal sensory deficits Patient Condition at Discharge: Stable Plan - Discharge Summary Discharge Rx Participant: Yes New Discharge Prescriptions: New Insulin Aspart [NovoLOG (formulary)] 14 unit SQ AC-TID vial Insulin Aspart [NovoLOG (formulary)] 0 unit SQ ACHS vial Insulin Detemir [Levemir] 44 unit SQ HS syr metFORMIN HCL [Glucophage] 1,000 mg PO BID-W/MEALS #60 tab Metoclopramide [Reglan] 5 mg PO ACHS #120 tab No Action Lisinopril [Zestril] 10 mg PO DAILY Discharge Medication List Lisinopril [Zestril] 10 mg PO DAILY 01/07/18 [History] Insulin Aspart [NovoLOG (formulary)] 0 unit SQ ACHS vial 01/09/18 [Rx] Insulin Aspart [NovoLOG (formulary)] 14 unit SQ AC-TID vial 01/09/18 [Rx] Insulin Detemir [Levemir] 44 unit SQ HS syr 01/09/18 [Rx] Metoclopramide [Reglan] 5 mg PO ACHS #120 tab 01/09/18 [Rx] metFORMIN HCL [Glucophage] 1,000 mg PO BID-W/MEALS #60 tab 01/09/18 [Rx] Follow up Appointment(s)/Referral(s): Carmen Warner MD [Primary Care Provider] - 01/10/18 3:00 pm () [facility], [NON-STAFF] - Patient Instructions/Handouts: Diabetic Ketoacidosis (DC), Type 2 Diabetes in Adults: New Diagnosis (DC), Meal Planning with Diabetes Exchanges (DC) Activity/Diet/Wound Care/Special Instructions: Glucometer and testing supplies - being mailed to you by [facility] - Discharge Disposition: HOME SELF-CARE
[2018-01-09] MEDS ORDERED: INSULIN ASPART 100 UNIT/ML 1 ML 10 ML VIAL SQ SCH (12:30)
[2018-01-09] MEDS ORDERED: METOCLOPRAMIDE 5 MG TAB PO SCH (12:30)
[2018-01-09 13:37] LABS: Glucose,Whole Blood 309 mg/dL (75-99)
[2018-01-09 14:15] VITALS: BP 119/57; PULSE 86
[2018-01-09] MEDS ORDERED: INSULIN DETEMIR 100 UNIT/ML 10 ML VIAL SQ SCH (21:00)
== END 2018-01-09 16:05 | disposition home health service (06) | DRG 638 ==
LOC: EC 10:19 → 6SEL 12:30
PROVIDERS: ADMIT Family Medicine; ATTEND Family Medicine
DX: E11.10 Type 2 diabetes mellitus with ketoacidosis without coma (principal); N17.9 Acute kidney failure, unspecified; E87.5 Hyperkalemia; E66.01 Morbid (severe) obesity due to excess calories; I95.1 Orthostatic hypotension; I10 Essential (primary) hypertension; E86.0 Dehydration; Z68.39 Body mass index [BMI] 39.0-39.9, adult; Z91.19 Patient's noncompliance with other medical treatment and regimen; Z71.3 Dietary counseling and surveillance; Z79.899 Other long term (current) drug therapy; Z90.49 Acquired absence of other specified parts of digestive tract; Z98.51 Tubal ligation status; Z87.891 Personal history of nicotine dependence; Z88.5 Allergy status to narcotic agent
CPT/HCPCS: 36415; 80048; 80051; 80053; 81001; 81025; 82009; 82550; 82553; 82565; 82947; 83036; 84100; 84484; 84520; 85025; 93005; 96361; 96374; 99285

== ENCOUNTER → 2018-04-12 | Outpatient (CLI) | payer OTHER ==
[2018-04-12 12:36] LABS: Anisocytosis Slight; HCT 32.5 % (34.0-46.0); HGB 9.4 gm/dL (11.4-16.0); Hypochromasia Marked; MCHC 28.8 g/dL (31.0-37.0); MCV 76.2 fL (80.0-100.0); Mean Platelet Volume 7.4; Microcytosis Slight; Platelet Count 318 k/uL (150-450); RBC 4.27 m/uL (3.80-5.40); RDW 16.7 % (11.5-15.5)
[2018-04-12 18:59] LABS: Albumin 4.4 g/dL (3.80-4.90); Albumin/Globulin Ratio 1.91 (1.20-2.10); Calcium 9.5 mg/dL (8.7-10.3); Globulin 2.3 g/dL (2.1-3.7); Total Bilirubin 0.4 mg/dL (0.3-1.2); Total Protein 6.7 g/dL (6.2-8.2)
[2018-04-12 21:31] LABS: Hemoglobin A1C 6.6 % (4.0-6.0)
== END | disposition home or self-care (01) ==
LOC: LABWHC1 11:46
PROVIDERS: ATTEND Family Medicine
DX: E11.65 Type 2 diabetes mellitus with hyperglycemia (principal); D64.9 Anemia, unspecified
CPT/HCPCS: 36415; 80053; 83036; 85027

== ENCOUNTER → 2018-08-07 | Outpatient (CLI) | payer OTHER ==
[2018-08-07 13:11] LABS: Anisocytosis Slight; Basophils % (A) 0 %; Eosinophils # (A) 0.3 k/uL (0-0.7); Eosinophils % (A) 4 %; HGB 9.7 gm/dL (11.4-16.0); Hypochromasia Marked; Lymphocytes # (A) 1.4 k/uL (1.0-4.8); Lymphocytes % (A) 22 %; MCH 20.9 pg (25.0-35.0); MCHC 28.5 g/dL (31.0-37.0); MCV 73.3 fL (80.0-100.0); Mean Platelet Volume 6.2; Microcytosis Moderate; Monocytes # (A) 0.2 k/uL (0-1.0); Monocytes % (A) 4 %; Neutrophils # (A) 4.3 k/uL (1.3-7.7); Neutrophils % (A) 68 %; Platelet Count 342 k/uL (150-450); RBC 4.64 m/uL (3.80-5.40); RDW 16.7 % (11.5-15.5); WBC 6.3 k/uL (3.8-10.6)
[2018-08-07 19:35] LABS: Albumin 4.5 g/dL (3.80-4.90); Albumin/Globulin Ratio 1.88 (1.60-3.17); Anion Gap 8.5 mmol/L (4.00-12.00); Calcium 9.5 mg/dL (8.7-10.3); Carbon Dioxide 26.5 mmol/L (21.6-31.8); Globulin 2.4 g/dL (1.6-3.3); LDL Cholesterol,Calculated 114.6 mg/dL (0.0-131.0); Potassium 4.2 mmol/L (3.5-5.5); Total Bilirubin 0.4 mg/dL (0.3-1.2); Total Protein 6.9 g/dL (6.2-8.2); VLDL Calculation 20.4 mg/dL (5.00-40.00)
[2018-08-07 19:42] LABS: Hemoglobin A1C 6.4 % (4.0-6.0)
== END | disposition home or self-care (01) ==
LOC: LABWHC1 11:26
PROVIDERS: ATTEND Family Medicine
DX: J45.909 Unspecified asthma, uncomplicated (principal); E11.9 Type 2 diabetes mellitus without complications; E78.5 Hyperlipidemia, unspecified
CPT/HCPCS: 36415; 80053; 80061; 82043; 82570; 83036; 85025

== ENCOUNTER → 2019-12-12 | Outpatient (CLI) | payer OTHER ==
[2019-12-12 20:07] LABS: Hepatitis B Surface Antigen Non-Reactive (Non-Reactive); Hepatitis C IgG Antibody Non-Reactive (Non-Reactive)
[2019-12-12 20:27] LABS: HIV 2 AB Non-Reactive (Non-Reactive); HIV AB P24 Non-Reactive (Non-Reactive); HIV P24 AG Non-Reactive (Non-Reactive)
[2019-12-12 21:06] LABS: Hemoglobin A1C 6.9 % (4.0-6.0)
== END | disposition home or self-care (01) ==
LOC: LABWHC1 09:34
PROVIDERS: ATTEND Family Medicine
DX: Z11.3 Encounter for screening for infections with a predominantly sexual mode of transmission (principal); E11.9 Type 2 diabetes mellitus without complications
CPT/HCPCS: 36415; 83036; 86780; 86803; 87340; 87390; 87521

== ENCOUNTER → 2020-06-01 | Outpatient (CLI) | payer OTHER ==
[2020-06-01 19:49] LABS: HCT 30.2 % (37.2-46.3); HGB 8.2 g/dL (12.0-15.0); MCH 19.2 pg (27.0-32.0); MCHC 27.2 g/dL (32.0-37.0); MCV 70.7 fL (80.0-97.0); Mean Platelet Volume 10.2 fL (9.5-12.2); Platelet Count 349 X 10*3/uL (140-440); RBC 4.27 X 10*6/uL (4.10-5.20); RDW 19.1 % (11.5-14.5)
[2020-06-01 20:42] LABS: Basophils # (A) 0.03 X 10*3/uL (0.00-0.10); Basophils % (A) 0.5 %; Eosinophils # (A) 0.33 X 10*3/uL (0.04-0.35); Eosinophils % (A) 5.7 %; Lymphocytes # (A) 1.39 X 10*3/uL (0.90-5.00); Monocytes # (A) 0.35 X 10*3/uL (0.20-1.00); Neutrophils # (A) 3.69 X 10*3/uL (1.80-7.70); Neutrophils % (A) 63.6 %
[2020-06-01 21:45] LABS: African American GFR (CKD) 82.8 (60.0-200.0); Albumin 4.8 g/dL (3.80-4.90); Albumin/Globulin Ratio 2.4 (1.60-3.17); Anion Gap 8.9 mmol/L (4.00-12.00); Calcium 9.5 mg/dL (8.7-10.3); Carbon Dioxide 24.1 mmol/L (21.6-31.8); Non-African American GFR(CKD) 71.4 (60.0-200.0); Potassium 4.1 mmol/L (3.5-5.5); Total Bilirubin 0.4 mg/dL (0.2-1.2); Total Protein 6.8 g/dL (6.2-8.2)
[2020-06-03 01:49] LABS: % Iron Saturation 2.55 (12.00-45.00); Ferritin 3.2 ng/mL (10.0-291.0)
== END | disposition home or self-care (01) ==
LOC: LABWHC1 11:19
PROVIDERS: ATTEND Family Medicine
DX: R10.9 Unspecified abdominal pain (principal)
CPT/HCPCS: 36415; 80053; 82728; 83540; 83550; 85025

== ENCOUNTER 2020-06-29 11:46 | Emergency (ER) | payer OTHER ==
[2020-06-29 11:53] VITALS: TEMP 98.1
[2020-06-29 13:00] LABS: Anisocytosis Slight; Basophils % (A) 0 %; Eosinophils % (A) 0 %; HCT 30.9 % (34.0-46.0); HGB 8.9 gm/dL (11.4-16.0); Hypochromasia Marked; Lymphocytes # (A) 0.5 k/uL (1.0-4.8); Lymphocytes % (A) 22 %; MCH 19.6 pg (25.0-35.0); MCHC 28.9 g/dL (31.0-37.0); MCV 67.6 fL (80.0-100.0); Mean Platelet Volume 8.5; Microcytosis Marked; Monocytes # (A) 0.1 k/uL (0-1.0); Monocytes % (A) 5 %; Neutrophils # (A) 1.7 k/uL (1.3-7.7); Neutrophils % (A) 70 %; Platelet Count 185 k/uL (150-450); RBC 4.57 m/uL (3.80-5.40); RDW 17.5 % (11.5-15.5); WBC 2.4 k/uL (3.8-10.6)
[2020-06-29 13:14] LABS: ALT 25 U/L (4-34); AST 30 U/L (14-36); African American GFR (CKD) >90 (>60 ml/min/1.73 sqM); Albumin 4.4 g/dL (3.5-5.0); Alkaline Phosphatase 112 U/L (38-126); Anion Gap 8 mmol/L; Blood Urea Nitrogen 11 mg/dL (7-17); C Reactive Protein 24.1 mg/L (<10.0); Calcium 9.6 mg/dL (8.4-10.2); Carbon Dioxide 28 mmol/L (22-30); Chloride 102 mmol/L (98-107); Glucose 134 mg/dL (74-99); LDH 658 U/L (313-618); Magnesium 2.1 mg/dL (1.6-2.3); Non-African American GFR(CKD) >90 (>60 ml/min/1.73 sqM); Potassium 4.8 mmol/L (3.5-5.1); Sodium 138 mmol/L (137-145); Total Bilirubin 0.5 mg/dL (0.2-1.3); Total Protein 7.5 g/dL (6.3-8.2)
[2020-06-29 13:26] LABS: INR 0.9 (<1.2); Prothrombin Time 9.9 sec (9.0-12.0)
--- NOTE | 2020-06-29 13:35 | XR ---
EXAMINATION TYPE: XR chest 1V portable DATE OF EXAM: 06/29/2020 COMPARISON: NONE HISTORY: Shortness of breath TECHNIQUE: Single frontal view of the chest is obtained. FINDINGS: There is no focal air space opacity, pleural effusion, or pneumothorax seen. The cardiac silhouette size is within normal limits. The osseous structures are intact. Mildly prominent inters titium. Limited inspiration. IMPRESSION: Correlate for interstitial pneumonitis or bronchitis.
[2020-06-29 13:40] LABS: Partial Thromboplastin Time 21.2 sec (22.0-30.0)
[2020-06-29] MEDS ORDERED: SODIUM CHLORIDE 0.9% 500 ML 500 ML IV STA (13:47)
[2020-06-29] MEDS ORDERED: DEXAMETHASONE SOD PHOSPHATE 10 MG/ML 1 ML VIAL IV STA (13:47)
--- NOTE | 2020-06-29 14:11 | ED ---
SOB HPI - General Chief Complaint: Shortness of Breath Stated Complaint: sob/covid+ Time Seen by Provider: 06/29/20 12:11 Source: patient Mode of arrival: wheelchair Limitations: no limitations - History of Present Illness Initial Comments: Patient is a 40-year-old female, with history of hypertension, diabetes, presenting to the emergency Department with complaints of shortness of breath increasing over the past few days. Patient was diagnosed with covid 6 days ago. She states her symptoms started just the day before that. She has been battling fevers over the past week, rangin from 99 to 101. Patient states the shortness breath became severe today so she came in for evaluation. She denies any abdominal pain, no nausea or vomiting. She does admit to a dry cough, with small amount production. Admits to history of mild asthma, no COPD. She admits to being a former smoker. She denies any chest pains but occasional burning when she coughs. She denies being this time. She has no further complaints. Upon arrival to the ER, she is afebrile, 99% on room air. - Related Data Home Medications Medication Instructions Recorded Confirmed Benzonatate [Tessalon Perles] 100 mg PO TID PRN 06/29/20 06/29/20 INSULIN LISPRO (HumaLOG) [HumaLOG] See Protocol SQ AC-TID 06/29/20 06/29/20 Ibuprofen [Motrin Ib] 800 mg PO Q8H PRN 06/29/20 06/29/20 Insulin Glargine [Lantus] 42 unit SQ HS 06/29/20 06/29/20 Prednisone (Unknown Strength) 1 dose PO DIRECTED 06/29/20 06/29/20 metFORMIN HCL [Glucophage] 1,000 mg PO DAILY 06/29/20 06/29/20 Previous Rx's Medication Instructions Recorded Albuterol Inhaler [Ventolin Hfa 2 puff INHALATION RT-QID PRN #1 06/29/20 Inhaler] puff Albuterol Nebulized [Ventolin 2.5 mg INHALATION RT-Q4H PRN #20 06/29/20 Nebulized] neb Dexamethasone [Decadron] 6 mg PO DAILY 5 Days #5 tablet 06/29/20 Allergies Allergy/AdvReac Type Severity Reaction Status Date / Time hydromorphone [From Dilaudid] Allergy Swelling Verified 06/29/20 14:34 morphine Allergy Swelling Verified 06/29/20 14:34 Review of Systems ROS Statement: Those systems with pertinent positive or pertinent negative responses have been documented in the HPI. ROS Other: All systems not noted in ROS Statement are negative. Past Medical History Past Medical History: Hypertension History of Any Multi-Drug Resistant Organisms: None Reported Past Surgical History: Cholecystectomy, Tubal Ligation Past Anesthesia/Blood Transfusion Reactions: No Reported Reaction Past Psychological History: No Psychological Hx Reported Smoking Status: Never smoker Past Alcohol Use History: None Reported Past Drug Use History: None Reported - Past Family History Father Family Medical History: COPD, Diabetes Mellitus, Hypertension Mother Family Medical History: Cancer, Diabetes Mellitus, Hypertension Sister(s) Family Medical History: Cancer General Exam - General Exam Comments Initial Comments: GENERAL: Patient is well-developed and well-nourished. Patient is nontoxic and in mild distress. HEAD: Atraumatic, normocephalic. EYES: Pupils equal round and reactive to light, extraocular movements intact, sclera anicteric, conjunctiva are normal. Eyelids were unremarkable. ENT: TMs normal, nares patent, oropharynx clear without exudates. Moist mucous membranes. NECK: Normal range of motion, supple without lymphadenopathy or JVD. LUNGS: Mildly labored respirations. Breath sounds clear to auscultation bilaterally and equal. No wheezes rales or rhonchi. HEART: Regular rate and rhythm without murmurs, rubs or gallops. ABDOMEN: Soft, nontender, normoactive bowel sounds. No guarding, no rebound. No masses appreciated. : Deferred MUSCULOSKELETAL: Normal extremities with adequate strength and normal range of motion, no pitting or edema. No clubbing or cyanosis. NEUROLOGICAL: Patient is alert and oriented x 3. Motor and sensory are also intact. Cranial nerves II through XII grossly intact. Symmetrical smile. Normal speech, normal gait. PSYCH: Normal mood, normal affect. SKIN: Warm, Dry, normal turgor, no rashes or lesions noted. Limitations: no limitations Course Vital Signs 06/29/20 06/29/20 11:51 13:49 Temperature 98.1 F Pulse Rate 64 Respiratory 18 20 Rate Blood Pressure 115/70 O2 Sat by Pulse 99 Oximetry Medical Decision Making - Medical Decision Making Patient is a 40-year-old female with history of hypertension, diabetes, presenting with shortness of breath increasing over the past week. She was diagnosed with covid 6 days ago, symptoms began one day before that. Her vital signs are stable upon arrival, 99% on room air, afebrile. She has some mild distress during her exam. EKG showed no acute process. Chest x-ray correlate for interstitial pneumonitis or bronchitis. Labs showed white count 2.4, hemoglobin is low at 8.9 which has been her baseline. D-dimer slightly elevated at 0.70. LDH and CRP is slightly elevated. Lactic acid is normal at 1.1. CT of the chest reveals no evidence for acute PE, multifocal areas of groundglass opacity. Patient received IV steroids, albuterol inhaler as well as some fluids. Her vital signs remained stable, 97-100% on room air during her stay. Patient was eligible for monoclonal antibody treatment, she did receive this. She was monitored for about an hour after her treatment, no adverse symptoms. P atient will be continued on steroids at home starting tomorrow, as well as albuterol inhaler. She does have updraft machine at home that she will use as well. She will follow up with her regular doctor. Patient is stable for discharge. Patient is in agreement with this plan of care. Return parameters were discussed with the patient and they verbalized understanding. Case di scussed with Dr. Hawley. - Lab Data Result diagrams: 06/29/20 12:46 06/29/20 12:46 Lab Results 06/29/20 06/29/20 06/29/20 Range/Units 12:46 12:46 12:46 WBC 2.4 L (3.8-10.6) k/uL RBC 4.57 (3.80-5.40) m/uL Hgb 8.9 L (11.4-16.0) gm/dL Hct 30.9 L (34.0-46.0) % MCV 67.6 L (80.0-100.0) fL MCH 19.6 L (25.0-35.0) pg MCHC 28.9 L (31.0-37.0) g/dL RDW 17.5 H (11.5-15.5) % Plt Count 185 (150-450) k/uL MPV 8.5 Neutrophils % 70 % Lymphocytes % 22 % Monocytes % 5 % Eosinophils % 0 % Basophils % 0 % Neutrophils # 1.7 (1.3-7.7) k/uL Lymphocytes # 0.5 L (1.0-4.8) k/uL Monocytes # 0.1 (0-1.0) k/uL Eosinophils # 0.0 (0-0.7) k/uL Basophils # 0.0 (0-0.2) k/uL Hypochromasia Marked Anisocytosis Slight Microcytosis Marked PT 9.9 (9.0-12.0) sec INR 0.9 (<1.2) APTT 21.2 L (22.0-30.0) sec D-Dimer 0.70 H (<0.60) mg/L FEU Sodium 138 (137-145) mmol/L Potassium 4.8 (3.5-5.1) mmol/L Chloride 102 (98-107) mmol/L Carbon Dioxide 28 (22-30) mmol/L Anion Gap 8 mmol/L BUN 11 (7-17) mg/dL Creatinine 0.76 (0.52-1.04) mg/dL Est GFR (CKD-EPI)AfAm >90 (>60 ml/min/1.73 sqM) Est GFR (CKD-EPI)NonAf >90 (>60 ml/min/1.73 sqM) Glucose 134 H (74-99) mg/dL Plasma Lactic Acid Glen (0.7-2.0) mmol/L Calcium 9.6 (8.4-10.2) mg/dL Magnesium 2.1 (1.6-2.3) mg/dL Total Bilirubin 0.5 (0.2-1.3) mg/dL AST 30 (14-36) U/L ALT 25 (4-34) U/L Alkaline Phosphatase 112 (38-126) U/L Lactate Dehydrogenase 658 H (313-618) U/L C-Reactive Protein 24.1 H (<10.0) mg/L Total Protein 7.5 (6.3-8.2) g/dL Albumin 4.4 (3.5-5.0) g/dL 06/29/20 Range/Units 12:46 WBC (3.8-10.6) k/uL RBC (3.80-5.40) m/uL Hgb (11.4-16.0) gm/dL Hct (34.0-46.0) % MCV (80.0-100.0) fL MCH (25.0-35.0) pg MCHC (31.0-37.0) g/dL RDW (11.5-15.5) % Plt Count (150-450) k/uL MPV Neutrophils % % Lymphocytes % % Monocytes % % Eosinophils % % Basophils % % Neutrophils # (1.3-7.7) k/uL Lymphocytes # (1.0-4.8) k/uL Monocytes # (0-1.0) k/uL Eosinophils # (0-0.7) k/uL Basophils # (0-0.2) k/uL Hypochromasia Anisocytosis Microcytosis PT (9.0-12.0) sec INR (<1.2) APTT (22.0-30.0) sec D-Dimer (<0.60) mg/L FEU Sodium (137-145) mmol/L Potassium (3.5-5.1) mmol/L Chloride (98-107) mmol/L Carbon Dioxide (22-30) mmol/L Anion Gap mmol/L BUN (7-17) mg/dL Creatinine (0.52-1.04) mg/dL Est GFR (CKD-EPI)AfAm (>60 ml/min/1.73 sqM) Est GFR (CKD-EPI)NonAf (>60 ml/min/1.73 sqM) Glucose (74-99) mg/dL Plasma Lactic Acid Glen 1.1 (0.7-2.0) mmol/L Calcium (8.4-10.2) mg/dL Magnesium (1.6-2.3) mg/dL Total Bilirubin (0.2-1.3) mg/dL AST (14-36) U/L ALT (4-34) U/L Alkaline Phosphatase (38-126) U/L Lactate Dehydrogenase (313-618) U/L C-Reactive Protein (<10.0) mg/L Total Protein (6.3-8.2) g/dL Albumin (3.5-5.0) g/dL - EKG Data EKG Comments: Normal sinus rhythm, normal ECG, no signs of acute ischemia. Ventricular rate 69, WI interval 150, QT 400. Disposition Clinical Impression: Dyspnea, Pneumonia due to COVID-19 virus Disposition: HOME SELF-CARE Condition: Stable Instructions (If sedation given, give patient instructions): Coronavirus Disease 2019 (COVID-19) Additional Instructions: Please return to the Emergency Department if symptoms worsen or any other concerns. Continue with steroids starting tomorrow. Use albuterol inhaler for shortness of breath. Follow-up with your regular doctor. Prescriptions: Dexamethasone [Decadron] 6 mg PO DAILY 5 Days #5 tablet Albuterol Inhaler [Ventolin Hfa Inhaler] 2 puff INHALATION RT-QID PRN #1 puff PRN Reason: Shortness Of Breath Albuterol Nebulized [Ventolin Nebulized] 2.5 mg INHALATION RT-Q4H PRN #20 neb PRN Reason: Shortness Of Breath Is patient prescribed a controlled substance at d/c from ED?: No Referrals: Vasmhi Drake [Primary Care Provider] - 1-2 days
--- NOTE | 2020-06-29 14:25 | CT ---
EXAMINATION TYPE: CT chest angio for PE DATE OF EXAM: 06/29/2020 COMPARISON: Chest x-ray earlier today. HISTORY: Covid+, SOB, Elevated D dimer CT DLP: 505.2 mGycm. Automated Exposure Control for Dose Reduction was Utilized. CONTRAST: CTA scan of the thorax is performed with IV Contrast, patient injected with 76 mL of Isovue 370, pulm onary embolism protocol. MIP Images are created on CT scanner and reviewed. FINDINGS: LUNGS: A few small focal areas of groundglass opacity throughout the periphery greatest in the lower lungs. No pleural effusion or pneumothorax seen bilaterally. No concerning pulmonary masses. The tr acheobronchial tree is patent. MEDIASTINUM: There is satisfactory enhancement of the pulmonary artery and its branches, there is no CT evidence for pulmonary embolism. There are prominent bilateral hilar lymph nodes. No cardiomega ly or pericardial effusion is seen. Heterogeneous prominent thyroid partially imaged. Satisfactory en hancement of the aorta without dissection or aneurysm. OTHER: Cholecystectomy clips noted on localizer. IMPRESSION: No CT evidence for acute pulmonary embolism. Multifocal areas of groundglass opacity grea test in the periphery of the bilateral lower lungs consistent with known Covid-19 infection are prese nt.
[2020-06-29] MEDS ORDERED: BAMLANIVIMAB (EUA) 700 MG in SODIUM CHLORIDE 0.9% 50 ML IVPB ONE (15:30)
[2020-06-29] MEDS ORDERED: ALBUTEROL HFA INHALER INHALATION STA (15:31)
[2020-06-29 17:09] VITALS: BP 128/79; PULSE 76; RESP 18
[2020-06-29 20:56] LABS: Ferritin 19.2 ng/mL (10.0-291.0)
== END 2020-06-29 17:05 | disposition home or self-care (01) ==
LOC: EC 11:46
DX: U07.1 COVID-19 (principal); J12.82 Pneumonia due to coronavirus disease 2019; I10 Essential (primary) hypertension; J45.909 Unspecified asthma, uncomplicated; E11.9 Type 2 diabetes mellitus without complications; R79.89 Other specified abnormal findings of blood chemistry; Z79.4 Long term (current) use of insulin; Z79.1 Long term (current) use of non-steroidal anti-inflammatories (NSAID); Z79.899 Other long term (current) drug therapy; Z88.5 Allergy status to narcotic agent; Z98.51 Tubal ligation status; Z87.891 Personal history of nicotine dependence; Z90.49 Acquired absence of other specified parts of digestive tract; Z83.3 Family history of diabetes mellitus; Z82.49 Family history of ischemic heart disease and other diseases of the circulatory system; Z82.5 Family history of asthma and other chronic lower respiratory diseases; Z80.9 Family history of malignant neoplasm, unspecified
CPT/HCPCS: 36415; 94640; 93005; 85379; 80053; 82728; 83605; 83615; 83735; 85025; 85610; 85730; 86140; 87040; 84145; 71045; 71275; J1100; Q9967; Q0239; 96361; 96374; 96375; 99285

== ENCOUNTER 2020-07-01 14:05 | Emergency (ER) | payer OTHER ==
[2020-07-01 14:23] VITALS: RESP 18; TEMP 97.8
--- NOTE | 2020-07-01 16:13 | ED ---
General Adult HPI - General Chief complaint: Recheck/Abnormal Lab/Rx Stated complaint: Abnormal labs Time Seen by Provider: 07/01/20 15:14 Source: patient, RN notes reviewed Mode of arrival: ambulatory Limitations: no limitations - History of Present Illness Initial comments: Patient is a pleasant 40-year-old female presenting to the emergency Department with reported positive blood culture. Patient states she was diagnosed with Crohn's virus several days ago. Onset of symptoms was over 1 week ago. Patient was in the hospital a couple of days ago. Patient did have blood work done and she received a phone call today advising her to be reevaluated. Patient states overall she is starting to feel better. Patient is no longer having fevers. Jeff bauer has mild cough and dyspnea however this is improving from what it was a few days ago. No abdominal pain. No dysuria. - Related Data Home Medications Medication Instructions Recorded Confirmed Benzonatate [Tessalon Perles] 100 mg PO TID PRN 06/29/20 07/01/20 INSULIN LISPRO (HumaLOG) [HumaLOG] See Protocol SQ AC-TID 06/29/20 07/01/20 Ibuprofen [Motrin Ib] 800 mg PO Q8H PRN 06/29/20 07/01/20 Insulin Glargine [Lantus] 42 unit SQ HS 06/29/20 07/01/20 metFORMIN HCL [Glucophage] 1,000 mg PO DAILY 06/29/20 07/01/20 Previous Rx's Medication Instructions Recorded Albuterol Inhaler [Ventolin Hfa 2 puff INHALATION RT-QID PRN #1 06/29/20 Inhaler] puff Albuterol Nebulized [Ventolin 2.5 mg INHALATION RT-Q4H PRN #20 06/29/20 Nebulized] neb Dexamethasone [Decadron] 6 mg PO DAILY 5 Days #5 tablet 06/29/20 Amoxicillin 500 mg PO Q8H #30 capsule 07/01/20 Allergies Allergy/AdvReac Type Severity Reaction Status Date / Time hydromorphone [From Dilaudid] Allergy Swelling Verified 07/01/20 16:10 morphine Allergy Swelling Verified 07/01/20 16:10 Review of Systems ROS Statement: Those systems with pertinent positive or pertinent negative responses have been documented in the HPI. ROS Other: All systems not noted in ROS Statement are negative. Constitutional: Denies: fever Eyes: Denies: eye pain ENT: Denies: ear pain Respiratory: Reports: as per HPI Cardiovascular: Denies: chest pain Endocrine: Denies: fatigue Gastrointestinal: Denies: abdominal pain Genitourinary: Denies: dysuria Musculoskeletal: Denies: back pain Skin: Denies: rash Neurological: Denies: weakness Past Medical History Past Medical History: Hypertension History of Any Multi-Drug Resistant Organisms: None Reported Past Surgical History: Cholecystectomy, Tubal Ligation Past Anesthesia/Blood Transfusion Reactions: No Reported Reaction Past Psychological History: No Psychological Hx Reported Smoking Status: Never smoker Past Alcohol Use History: None Reported Past Drug Use History: None Reported - Past Family History Father Family Medical History: COPD, Diabetes Mellitus, Hypertension Mother Family Medical History: Cancer, Diabetes Mellitus, Hypertension Sister(s) Family Medical History: Cancer General Exam Limitations: no limitations General appearance: alert, in no apparent distress Head exam: Present: normocephalic Eye exam: Present: normal appearance Neck exam: Present: normal inspection. Absent: meningismus Respiratory exam: Present: normal lung sounds bilaterally Cardiovascular Exam: Present: regular rate, normal rhythm GI/Abdominal exam: Present: soft. Absent: tenderness Extremities exam: Present: normal inspection Neurological exam: Present: alert Psychiatric exam: Present: normal affect, normal mood Skin exam: Present: normal color Course Vital Signs 07/01/20 14:20 Temperature 97.8 F Pulse Rate 67 Respiratory 18 Rate Blood Pressure 127/80 O2 Sat by Pulse 99 Oximetry Medical Decision Making - Medical Decision Making Patient reevaluated and resting comfortably in bed. Patient is feeling well and comfortable discharge home. Reevaluation at this time does appear well. Significance of blood cultures unclear at this time. Limited result of gram-positive bacilli. Patient will be covered with amoxicillin for possible infection. Patient is advised close follow-up with primary care physician. Repeat blood cultures are been drawn. - Lab Data Result diagrams: 07/01/20 16:05 07/01/20 16:05 Lab Results 07/01/20 07/01/20 07/01/20 Range/Units 16:05 16:05 16:05 WBC 6.0 (3.8-10.6) k/uL RBC 4.45 (3.80-5.40) m/uL Hgb 9.0 L (11.4-16.0) gm/dL Hct 30.4 L (34.0-46.0) % MCV 68.3 L (80.0-100.0) fL MCH 20.2 L (25.0-35.0) pg MCHC 29.5 L (31.0-37.0) g/dL RDW 17.5 H (11.5-15.5) % Plt Count 189 (150-450) k/uL MPV 8.5 Neutrophils % 86 % Lymphocytes % 10 % Monocytes % 3 % Eosinophils % 0 % Basophils % 0 % Neutrophils # 5.2 (1.3-7.7) k/uL Lymphocytes # 0.6 L (1.0-4.8) k/uL Monocytes # 0.2 (0-1.0) k/uL Eosinophils # 0.0 (0-0.7) k/uL Basophils # 0.0 (0-0.2) k/uL Hypochromasia Marked Anisocytosis Slight Microcytosis Marked Sodium 138 (137-145) mmol/L Potassium 4.6 (3.5-5.1) mmol/L Chloride 104 (98-107) mmol/L Carbon Dioxide 25 (22-30) mmol/L Anion Gap 9 mmol/L BUN 12 (7-17) mg/dL Creatinine 0.68 (0.52-1.04) mg/dL Est GFR (CKD-EPI)AfAm >90 (>60 ml/min/1.73 sqM) Est GFR (CKD-EPI)NonAf >90 (>60 ml/min/1.73 sqM) Glucose 125 H (74-99) mg/dL Plasma Lactic Acid [place] 1.6 (0.7-2.0) mmol/L Calcium 9.6 (8.4-10.2) mg/dL Total Bilirubin 0.3 (0.2-1.3) mg/dL AST 35 (14-36) U/L ALT 29 (4-34) U/L Alkaline Phosphatase 100 (38-126) U/L Total Protein 7.3 (6.3-8.2) g/dL Albumin 4.3 (3.5-5.0) g/dL Urine Color Urine Appearance (Clear) Urine pH (5.0-8.0) Ur Specific [place] (1.001-1.035) Urine Protein (Negative) Urine Glucose (UA) (Negative) Urine Ketones (Negative) Urine Blood (Negative) Urine Nitrite (Negative) Urine Bilirubin (Negative) Urine Urobilinogen (<2.0) mg/dL Ur Leukocyte Esterase (Negative) Urine RBC (0-5) /hpf Urine WBC (0-5) /hpf Ur Squamous Epith Cells (0-4) /hpf Urine Mucus (None) /hpf 07/01/20 Range/Units 17:00 WBC (3.8-10.6) k/uL RBC (3.80-5.40) m/uL Hgb (11.4-16.0) gm/dL Hct (34.0-46.0) % MCV (80.0-100.0) fL MCH (25.0-35.0) pg MCHC (31.0-37.0) g/dL RDW (11.5-15.5) % Plt Count (150-450) k/uL MPV Neutrophils % % Lymphocytes % % Monocytes % % Eosinophils % % Basophils % % Neutrophils # (1.3-7.7) k/uL Lymphocytes # (1.0-4.8) k/uL Monocytes # (0-1.0) k/uL Eosinophils # (0-0.7) k/uL Basophils # (0-0.2) k/uL Hypochromasia Anisocytosis Microcytosis Sodium (137-145) mmol/L Potassium (3.5-5.1) mmol/L Chloride (98-107) mmol/L Carbon Dioxide (22-30) mmol/L Anion Gap mmol/L BUN (7-17) mg/dL Creatinine (0.52-1.04) mg/dL Est GFR (CKD-EPI)AfAm (>60 ml/min/1.73 sqM) Est GFR (CKD-EPI)NonAf (>60 ml/min/1.73 sqM) Glucose (74-99) mg/dL Plasma Lactic Acid [place] (0.7-2.0) mmol/L Calcium (8.4-10.2) mg/dL Total Bilirubin (0.2-1.3) mg/dL AST (14-36) U/L ALT (4-34) U/L Alkaline Phosphatase (38-126) U/L Total Protein (6.3-8.2) g/dL Albumin (3.5-5.0) g/dL Urine Color Yellow Urine Appearance Clear (Clear) Urine pH 7.5 (5.0-8.0) Ur Specific [place] 1.023 (1.001-1.035) Urine Protein Trace H (Negative) Urine Glucose (UA) Negative (Negative) Urine Ketones Negative (Negative) Urine Blood Negative (Negative) Urine Nitrite Negative (Negative) Urine Bilirubin Negative (Negative) Urine Urobilinogen <2.0 (<2.0) mg/dL Ur Leukocyte Esterase Small H (Negative) Urine RBC 1 (0-5) /hpf Urine WBC 3 (0-5) /hpf Ur Squamous Epith Cells 5 H (0-4) /hpf Urine Mucus Rare H (None) /hpf - Radiology Data Radiology results: image reviewed (Chest x-ray shows no worsening of infiltrates.) Disposition Clinical Impression: Positive blood culture Disposition: HOME SELF-CARE Condition: Stable Instructions (If sedation given, give patient instructions): Bacteremia (ED) Additional Instructions: Please follow-up with primary care physician in the next day or 2 for recheck. Return for fevers, increased illness, cough or difficulty in breathing, abdominal pain, urinary problems, sore throat, worsening symptoms or other concerns. Prescription sent to pharmacy. Prescriptions: Amoxicillin 500 mg PO Q8H #30 capsule Is patient prescribed a controlled substance at d/c from ED?: No Referrals: Vamshi Drake [Primary Care Provider] - 1-2 days Time of Disposition: 17:46
[2020-07-01 16:22] LABS: Anisocytosis Slight; Basophils % (A) 0 %; Eosinophils % (A) 0 %; HCT 30.4 % (34.0-46.0); Hypochromasia Marked; Lymphocytes # (A) 0.6 k/uL (1.0-4.8); Lymphocytes % (A) 10 %; MCH 20.2 pg (25.0-35.0); MCHC 29.5 g/dL (31.0-37.0); MCV 68.3 fL (80.0-100.0); Mean Platelet Volume 8.5; Microcytosis Marked; Monocytes # (A) 0.2 k/uL (0-1.0); Monocytes % (A) 3 %; Neutrophils # (A) 5.2 k/uL (1.3-7.7); Neutrophils % (A) 86 %; Platelet Count 189 k/uL (150-450); RBC 4.45 m/uL (3.80-5.40); RDW 17.5 % (11.5-15.5)
--- NOTE | 2020-07-01 16:23 | XR ---
EXAMINATION TYPE: XR chest 2V DATE OF EXAM: 07/01/2020 COMPARISON: Chest x-ray and CT chest 2 days ago HISTORY: Fever. TECHNIQUE: Frontal and lateral views of the chest are obtained. FINDINGS: There is no new suspicious focal air space opacity, pleural effusion, or pneumothorax seen . Somewhat low lung volumes redemonstrated and stable. Faint small groundglass opacities in the prosper phery of the lower lungs on CT left wall seen on x-rays. The cardiac silhouette size is stable and wi thin normal limits. The osseous structures are intact. IMPRESSION: No worsening acute infiltrates.
[2020-07-01 16:30] LABS: ALT 29 U/L (4-34); AST 35 U/L (14-36); African American GFR (CKD) >90 (>60 ml/min/1.73 sqM); Albumin 4.3 g/dL (3.5-5.0); Alkaline Phosphatase 100 U/L (38-126); Anion Gap 9 mmol/L; Blood Urea Nitrogen 12 mg/dL (7-17); Calcium 9.6 mg/dL (8.4-10.2); Carbon Dioxide 25 mmol/L (22-30); Chloride 104 mmol/L (98-107); Glucose 125 mg/dL (74-99); Non-African American GFR(CKD) >90 (>60 ml/min/1.73 sqM); Potassium 4.6 mmol/L (3.5-5.1); Sodium 138 mmol/L (137-145); Total Bilirubin 0.3 mg/dL (0.2-1.3); Total Protein 7.3 g/dL (6.3-8.2)
[2020-07-01 17:07] LABS: Appearance,Urine Clear (Clear); Bilirubin,Urine Negative (Negative); Blood,Urine Negative (Negative); Color,Urine Yellow; Glucose,Urine (UA) Negative (Negative); Ketones,Urine Negative (Negative); Leukocyte Esterase,Urine Small (Negative); Mucus,Urine Rare /hpf; Nitrite,Urine Negative (Negative); PH, Urine 7.5 (5.0-8.0); Protein,Urine Trace (Negative); RBC,Urine 1 /hpf (0-5); Specific Gravity,Urine 1.023 (1.001-1.035); Squamous Epithelial Cell,Urine 5 /hpf (0-4); Urobilinogen,Urine <2.0 mg/dL (<2.0); WBC,Urine 3 /hpf (0-5)
[2020-07-01 17:59] VITALS: BP 120/86; PULSE 72
== END 2020-07-01 17:59 | disposition home or self-care (01) ==
LOC: EC 14:05
DX: R78.81 Bacteremia (principal); I10 Essential (primary) hypertension; Z90.49 Acquired absence of other specified parts of digestive tract; Z98.51 Tubal ligation status
CPT/HCPCS: 36415; 71046; 80053; 81001; 83605; 85025; 87040; 99283

== ENCOUNTER → 2021-02-08 | Outpatient (CLI) | payer OTHER ==
[2021-02-08 23:54] LABS: HCT 29.5 % (37.2-46.3); HGB 7.8 g/dL (12.0-15.0); MCH 19.5 pg (27.0-32.0); MCHC 26.4 g/dL (32.0-37.0); MCV 73.9 fL (80.0-97.0); Mean Platelet Volume 10.8 fL (9.5-12.2); Platelet Count 327 X 10*3/uL (140-440); RBC 3.99 X 10*6/uL (4.10-5.20); RDW 17.7 % (11.5-14.5); WBC 7.02 X 10*3/uL (4.50-10.00)
[2021-02-09 00:29] LABS: Basophils # (A) 0.02 X 10*3/uL (0.00-0.10); Basophils % (A) 0.3 %; Eosinophils # (A) 0.33 X 10*3/uL (0.04-0.35); Eosinophils % (A) 4.7 %; Hypochromasia (M) 2+; Lymphocytes # (A) 1.94 X 10*3/uL (0.90-5.00); Lymphocytes % (A) 27.6 %; Microcytosis (M) 2+; Monocytes # (A) 0.39 X 10*3/uL (0.20-1.00); Monocytes % (A) 5.6 %; Neutrophils # (A) 4.33 X 10*3/uL (1.80-7.70); Neutrophils % (A) 61.7 %
[2021-02-09 02:39] LABS: Estimated Average Glucose 122.63
[2021-02-09 04:49] LABS: African American GFR (CKD) 93.4 (60.0-200.0); Albumin 4.4 g/dL (3.8-4.9); Albumin/Globulin Ratio 1.63 (1.60-3.17); Anion Gap 14.8 mmol/L (4.00-12.00); BUN/Creat Ratio 9.89 Ratio (12.00-20.00); Blood Urea Nitrogen 8.9 mg/dL (9.0-27.0); Calcium 9.3 mg/dL (8.7-10.3); Carbon Dioxide 21.2 mmol/L (21.6-31.8); Globulin 2.7 g/dL (1.6-3.3); Non-African American GFR(CKD) 80.5 (60.0-200.0); Potassium 3.6 mmol/L (3.5-5.5); Total Bilirubin 0.2 mg/dL (0.30-1.20); Total Protein 7.1 g/dL (6.2-8.2)
[2021-02-10 10:39] LABS: Microalbumin Creatinine Ratio <30 mg/g Creat (0-30); Urine Creatinine 99.1 mg/dL (28.0-217.0)
== END | disposition home or self-care (01) ==
LOC: LABWHC1 15:58
PROVIDERS: ATTEND Family Medicine
DX: I10 Essential (primary) hypertension (principal); E11.9 Type 2 diabetes mellitus without complications
CPT/HCPCS: 36415; 80053; 82043; 82570; 83036; 85025

== ENCOUNTER → 2021-02-11 | Outpatient (CLI) | payer OTHER ==
[2021-02-11 15:54] LABS: Chol/HDL Ratio 3.25 Ratio; HDL Cholesterol 57.6 mg/dL (40.00-60.00); LDL Cholesterol,Calculated 114.4 mg/dL (0.0-131.0); Triglycerides 75.2 mg/dL (0.00-149.00); VLDL Calculation 15.04 mg/dL (5.00-40.00)
== END | disposition home or self-care (01) ==
LOC: LABWHC1 07:34
PROVIDERS: ATTEND Family Medicine
DX: E11.9 Type 2 diabetes mellitus without complications (principal)
CPT/HCPCS: 36415; 80061